=== PATIENT | female | born 2000 | race Two or more races ===

== ENCOUNTER 2025-01-09 20:22 | Observation (INO) | payer MEDICAID, SELFPAY ==
[2025-01-09 20:29] VITALS: BP 119/77; PULSE 77; RESP 18; RESP 99; TEMP 36.6
[2025-01-09 20:31] VITALS: BMI 31.8
[2025-01-09 20:33] VITALS: TEMP 36.6
== END 2025-01-09 20:56 | disposition home or self-care (01) ==
PROVIDERS: Admitting Provider Obstetrics & Gynecology; Visit Provider Obstetrics & Gynecology
DX: O26.893 Other specified pregnancy related conditions, third trimester (principal); R10.2 Pelvic and perineal pain; Z3A.35 35 weeks gestation of pregnancy
CPT/HCPCS: 59899; G0378

== ENCOUNTER 2025-02-04 19:28 | Inpatient (IN) | payer MEDICAID, SELFPAY ==
[2025-02-04] VITALS (18 sets, daily range): BP systolic 108–124; BP diastolic 60–89; PULSE 62–104; RESP 15–99; TEMP 36.8; O2SAT 98–100; BMI 73.5
--- NOTE | 2025-02-04 20:38 | ESHP_ITS ---
Documentation for date of: 02/04/25 OB Labor/Induct. HPI History of Present Illness Chief complaint: 24 y/o 39w 1d presents in early labor to L&D at 2 cm : 3 Para: 2 Term pregnancies: 2 pregnancies: 0 Living children: 2 History of Abortions: Spontaneous and Elective: 0 History of Vaginal deliveries: 2 History of sections: No History of : No MOJGAN: 02/10/25 Gestational Age (weeks): 39 Gestational Age (days): 1 History of present illness: 24 y/o 39w 1d presents in early labor to L&D at 2 cm/60/-3 vertex, GBS is neg. Pt's has been mostly uncomplicated with the exception that the fetus does have multiple VSD. Will notify Peds for a exam. EFW 3400g. Pt has a hx of nvd x2 no complications. History of Present Dating criteria: based on 1st trimester US only Adequate Care: Yes Ultrasounds: normal 1st trimester US, normal mid trimester US and abnormal US findings (Fetus has multiple VSD noted) Obstetrical complications: none Medical complications: none Labs Maternal Blood Type: A Pos Labs: Negative: RPR, Hepatitis B, Rubella Titre, HIV, Chlamydia, Gonorrhea and Group Beta Strep and Unknown: Herpes Type 1, Herpes Type 2 and Covid-19 Review of Systems Review of Systems Systems Reviewed: All systems reviewed, normal except as documented Past Medical History Surgical History SURGICAL: Negative Section Meds Home Medications and Allergies Home Medications ?Medication ?Instructions ?Recorded ?Confirmed ?Type folic acid 20 mg capsule 20 mg PO QDAY 01/09/2502/04 History vit no.95-ferrous 1 tab PO QDAY 01/09/25 05/0 02/24 History fumarate 28 mg-folic acid 800 mcg tablet () Allergies Allergy/AdvReac Type Severity Reaction Status Date / Time No Known Allergies Allergy Verified 02/04/25 19:54 OB Exam Physical Exam Vital signs: Temp Pulse Resp BP Pulse Ox O2 Del Method 98.3 F 94 15 122/75 100 Room Air 02/04/25 19:40 02/04/25 19:40 02/04/25 19:40 02/04/25 19:40 02/04/25 20:35 02/04/25 19:40 Constitutional Constitutional: mild distress (Secondary to painful contractions) Routine HEENT Exam Head: Present normocephalic and atraumatic Eye: Present EOMI, PERRL and normal accommodation ENT: Present mucous membranes moist Routine Neck Exam Neck: Present full ROM Routine Respiratory Exam Respiratory: Absent respiratory distress Routine Cardiovascular Exam Cardiovascular: Present RRR Routine Abdominal Exam Abdominal: Present soft and normoactive bowel sounds Routine Exam External: Present normal urethra appearance; Absent lesions Detailed Labor and Delivery Exam Dilation (cm): 2 Effacement (%): 50 to 60 Cervix position: posterior station: -3 Consistency: soft Presentation: Vertex Membranes: intact Baseline heart rate: 125 monitor accelerations: 15x15 monitor decelerations: None [facility] variability: Moderate (11-25) Contraction frequency (min): 5 minutes Routine Extremities Exam Extremities: Present full ROM Routine Back/Spine/Pelvis Exam Back/Spine: Present full ROM Routine Skin Exam Skin: Present intact, dry and warm Routine Neurological Exam Neurological: Present alert, oriented X3 and CN II-XII intact Routine Psychiatric Exam Psychiatric: Present normal affect and normal thought process OB Assessment & Plan Assessment and Plan (1) Normal labor: Status: Acute (2) with 39 completed weeks gestation: Status: Acute (3) Rubella non-immune status, antepartum: Status: Acute Additional Plan Induction method: none Plan: augmentation (Misoprostol), anticipate NVD and consult prn Additional Plan Comment: Routine admit orders Consult anesthesia or an epidural US for presentation and EFW Continuous EFM Will notify Peds of the [facility] VSDs Dr. Krish perez
--- NOTE | 2025-02-04 21:01 | XR_ITS ---
Examination: file delimited TECHNIQUE: Limited transabdominal sonographic images pelvis Presented time: February 04, 2025 2135 hours INDICATIONS: Unknown size and dates today FINDINGS: Viable intrauterine gestation cephalic presentation spine maternal right Cardiac motion 133 BPM Estimated gestational age 38 weeks 6 days Estimated weight 3605 g IMPRESSION: Viable intrauterine gestation cephalic presentation
[2025-02-04 21:26] LABS: Basophils # (Auto) 0.1 Thou/mm3 (0.0-0.2); Basophils % (Auto) 0 % (0-2.5); Eosinophils # (Auto) 0.1 Thou/mm3 (0.0-0.5); Eosinophils % (Auto) 1 % (0-10); Hematocrit 34.5 % (36.0-46.0); Hemoglobin 11.7 g/dL (12.0-16.0); Immature Granulocytes % (Auto) 0 % (0-0); Immature Granulocytes Auto 0.05 Thou/mm3 (0.00-0.00); Lymphocytes # (Auto) 3.6 Thou/mm3 (1.0-4.8); Lymphocytes % (Auto) 24 % (10-50); Mean Corpuscular HGB Conc 33.9 g/dl (31.0-37.0); Mean Corpuscular Hemoglobin 28.5 pg (25.0-35.0); Mean Corpuscular Volume 84 fL (80-100); Monocytes % (Auto) 6 % (0-12); Neutrophils # (Auto) 10.2 Thou/mm3 (1.8-7.7); Neutrophils % (Auto) 68 % (37-80); Nucleated Red Blood Cell % 0 /100 WBC (0); Platelet Count 222 Thou/mm3 (140-440); Red Blood Count 4.11 Miln/mm3 (4.00-5.20)
[2025-02-04 22:03] LABS: Syphilis Nonreactive (Nonreactive)
[2025-02-04] MEDS: MISOPROSTOL 50 mCg TABLET PO (23:07)
[2025-02-05] VITALS (13 sets, daily range): BP systolic 96–154; BP diastolic 56–105; PULSE 56–89; RESP 16–18; TEMP 36.6–36.9; O2SAT 98–99
[2025-02-05] MEDS: ONDANSETRON INJ 2 MG/ML INJ 2 ML 4 MG IV (02:33)
[2025-02-05] MEDS: fentaNYL CIT INJ 50 mCg/ML AMP 2ML 100 MCG IV (02:33)
[2025-02-05] MEDS: MINERAL OIL 30 ML UDC TOP (04:04)
[2025-02-05] MEDS: OXYTOCIN in NS 20 units 20 UNIT/1,000 ML BAG 125 UNIT IV (04:05)
[2025-02-05] MEDS: LIDOCAINE HCL 1% 20 ML VIAL INFL (04:05)
--- NOTE | 2025-02-05 04:18 | OBDSUM_ITS ---
Data (Meza) Data Hx Section: No Maternal Blood Type: A Pos Rubella Titre: Negative RPR: Non-reactive Labs: Negative: RPR, Hepatitis B, HIV, Chlamydia, Gonorrhea and Group Beta Strep and Unknown: Herpes Type 1 and Herpes Type 2 : 3 Para: 2 Term: 2 : 0 Livin Abortions: Spontaneous & Theraputic: 0 Delivery Data (Meza) Labor Data Initiation of labor: Induction Induction/Augmentation Agent: Cytotec-PO ROM date: 02/05/25 ROM time: 03:46 Amniotic membrane rupture type: Artificial Amniotic fluid description: Clear Delivery Data EDC: 02/10/25 EDC calculated by:: ultrasound Onset of labor date: 02/05/25 Onset of labor time: 02:16 Complete dilation date: 02/05/25 Complete dilation time: 03:46 delivery date: 02/05/25 delivery time: 03:56 Gestational age (weeks): 39 Gestational age (days): 2 Placenta delivery date: 02/05/25 Placenta delivery time: 04:00 Stage 1 total time: Labor - Stage 1 Duration 1 hours and 30 minutes Delivered by: Amanda Mendez Delivery nurse: Sabra Burton nurse: Christo Gonzalez [employer]visor [employer] at delivery: Yes Support person(s) at delivery: Gautam Bagley Other staff at delivery: Shanice ALLISON Delivery Method Delivery: Vaginal Delivery Type: Primary Presentation: Vertex Position: OA Anesthesia Type Primary Anesthesia: Local Secondary Anesthesia: None Delivery Room Medications Other Intrapartum Medications: No Post Delivery Medications: Antibiotics Post Delivery Medications N/A: Yes Placenta Placenta Delivery: Spontaneous Placenta Cultures Obtained: No Placenta Sent for Examination: No Cord Sample: Cord Blood Obtained Episiotomy Episiotomy: None Lacerations #1: Perineal: 1st degree Perineal repair Sutures used for repair: 3.0 Vicryl (CT) EBL Estimated blood loss (ml): 300 Umbilical Cord Umbilical Vessels: 3 Nuchal Cord: Not Applicable Body Cord: Not Applicable Additional Procedures Patient was complete early this morning the bulging bag. AROM performed at bedside clear fluids noted. After a few pushes patient had an of a viable male infant. Infant's anterior shoulder delivered with gentle downward traction subsequent deliver the posterior shoulder and the body without complications. Infant placed on mother's abdomen. Vigorous cry upon delivery. Cord was clamped. Cut by FOB. Cord blood obtained. Three-vessel cord noted. Placenta expelled spontaneously and intact. Patient sustained a first-degree perineal laceration. Repaired using a 3-[address] suture. Excellent hemostasis achieved after vigorous fundal massage and removal of clots from the posterior fornix. EBL 300. Sponge and needle count correct. Mother and baby stable, skin to skin and bonding in LDR. Data (Meza) [place] Data 's gender: Male Identification band number: [id number] weight (gms): 3425 g Weight (pounds): 7 lbs and 8.8 ozs length: 53.34 cm 1 minute: 9 5 minutes: 9
[2025-02-05] MEDS: TRANEXAMIC ACID 1,000 MG IVPB 1,000 MG/100 ML BAG 200 MG IV (05:31)
[2025-02-05] MEDS: ceFAZolin/D5W 2 GM IV 2 GM/100 ML BAG IV (05:33)
[2025-02-05] MEDS: BENZO/LANO/ALOE (Dermoplast) 60 GM CAN 1 SPRAY TOP (05:33)
[2025-02-05] MEDS: IBUPROFEN TAB 400 MG TABLET 800 MG PO ×2 (06:24→15:19)
[2025-02-05] MEDS: DOCUSATE SOD 100 MG CAPSULE PO (08:36)
[2025-02-05 10:05] LABS: Basophils % (Auto) 0 % (0-2.5); Eosinophils % (Auto) 0 % (0-10); Hematocrit 32.6 % (36.0-46.0); Hemoglobin 10.9 g/dL (12.0-16.0); Immature Granulocytes % (Auto) 0 % (0-0); Immature Granulocytes Auto 0.08 Thou/mm3 (0.00-0.00); Lymphocytes # (Auto) 1.7 Thou/mm3 (1.0-4.8); Lymphocytes % (Auto) 9 % (10-50); Mean Corpuscular HGB Conc 33.4 g/dl (31.0-37.0); Mean Corpuscular Hemoglobin 28.9 pg (25.0-35.0); Mean Corpuscular Volume 87 fL (80-100); Monocytes # (Auto) 1.2 Thou/mm3 (0.0-0.8); Monocytes % (Auto) 6 % (0-12); Neutrophils # (Auto) 15.8 Thou/mm3 (1.8-7.7); Neutrophils % (Auto) 84 % (37-80); Nucleated Red Blood Cell % 0 /100 WBC (0); Platelet Count 200 Thou/mm3 (140-440); RDW Standard Deviation 45.6 fL (36.4-46.3); Red Blood Count 3.77 Miln/mm3 (4.00-5.20); White Blood Count 18.8 Thou/mm3 (3.6-11.0)
[2025-02-05 20:27] LABS: Basophils % (Auto) 0 % (0-2.5); Eosinophils # (Auto) 0.1 Thou/mm3 (0.0-0.5); Eosinophils % (Auto) 0 % (0-10); Hematocrit 31.3 % (36.0-46.0); Hemoglobin 10.5 g/dL (12.0-16.0); Immature Granulocytes % (Auto) 1 % (0-0); Lymphocytes # (Auto) 2.6 Thou/mm3 (1.0-4.8); Lymphocytes % (Auto) 15 % (10-50); Mean Corpuscular HGB Conc 33.5 g/dl (31.0-37.0); Mean Corpuscular Hemoglobin 28.9 pg (25.0-35.0); Mean Corpuscular Volume 86 fL (80-100); Monocytes # (Auto) 1.2 Thou/mm3 (0.0-0.8); Monocytes % (Auto) 7 % (0-12); Neutrophils # (Auto) 13.2 Thou/mm3 (1.8-7.7); Neutrophils % (Auto) 77 % (37-80); Nucleated Red Blood Cell % 0 /100 WBC (0); Platelet Count 180 Thou/mm3 (140-440); Red Blood Count 3.63 Miln/mm3 (4.00-5.20); White Blood Count 17.1 Thou/mm3 (3.6-11.0)
[2025-02-06 03:00] VITALS: BP 104/71; PULSE 98; RESP 18; TEMP 36.6; O2SAT 96
--- NOTE | 2025-02-06 06:33 | PD.LDDS ---
DS: Providers Provider Date of admission: 02/04/25 20:33 Primary care physician: Physician No Primary/Family Admitting Provider: Amanda Mendez CNM Attending Provider on Admission: Amanda Mendez CNM Attending Provider on DC: Amanda Mendez CNM Discharging Provider: Amanda Mendez CNM Anticipated date of discharge: 02/06/25 DS: Diagnosis Discharge Diagnosis (1) Normal spontaneous vaginal delivery: Status: Acute (2) Encounter for care of lactating mother: Status: Acute (3) Rubella nonimmune status, delivered, current hospitalization: Status: Acute (4) with 39 completed weeks gestation: Status: Acute (5) Normal labor: Status: Acute Problem List Completed Was Problem List Reviewed/Reconciled?: Yes Summary/Hosp Course Brief History: 24 y/o 39w 1d presents in early labor to L&D at 2 cm/60/-3 vertex, GBS is neg. Pt's has been mostly uncomplicated with the exception that the fetus does have multiple VSD. Will notify Peds for a exam. EFW 3400g. Pt has a hx of nvd x2 no complications. 02/05/25: Patient was complete early this morning the bulging bag. AROM performed at bedside clear fluids noted. After a few pushes patient had an of a viable male infant. 's anterior shoulder delivered with gentle downward traction subsequent deliver the posterior shoulder and the body without complications. placed on mother's abdomen. Vigorous cry upon delivery. Cord was clamped. Cut by FOB. Cord blood obtained. Three-vessel cord noted. Placenta expelled spontaneously and intact. Patient sustained a first-degree perineal laceration. Repaired using a 3-[address] suture. Excellent hemostasis achieved after vigorous fundal massage and removal of clots from the posterior fornix. EBL 300. Sponge and needle count correct. Mother and baby stable, skin to skin and bonding in LDR. 02/06/25: PPD#1 Patient is stable and afebrile doing well . Denies dizziness shortness of breath. No complaints. Discharge instructions given. Uterus nontender fundus firm minimal lochia. Patient to follow-up with Leslee Mendez CNM in 3 weeks Peripartum Data Delivery Method: Normal Vaginal Delivery Episiotomy Description: None Laceration Description: yes and see Delivery Summary complications: none 1: Gender: Male Disposition of : home Status at Discharge Cognitive/behavioral status at discharge: Alert and oriented x 3 Functional status at discharge: independent ambulation Overall status at discharge: patient is progressing back to baseline Time Spent with Patient Time attestation: Total time spent providing and/or coordinating discharge services: Time spent: Greater than 30 minutes Exam Vital Signs Temp Pulse Resp BP Pulse Ox O2 Del Method 98.2 F 68 15 129/76 100 Room Air 02/04/25 23:10 02/05/25 04:19 02/04/25 19:40 02/05/25 04:19 02/04/25 20:40 02/04/25 19:40 Constitutional Constitutional: no acute distress Routine HEENT Exam Head: Present normocephalic and atraumatic Eye: Present EOMI, PERRL and normal accommodation ENT: Present mucous membranes moist Routine Neck Exam Neck: Present full ROM Routine Respiratory Exam Respiratory: Present chest non-tender, lungs clear, normal breath sounds and no resp distress Routine Cardiovascular Exam Cardiovascular: Present RRR Routine Abdominal Exam Abdominal: Present soft and normoactive bowel sounds; Absent tenderness or distended Comments: Uterus nontender Fundus firm Routine Exam Patient deferred: external exam Routine Extremities Exam Extremities: Present full ROM, pulses intact and normal capillary refill; Absent calf tenderness or tenderness Routine Back/Spine/Pelvis Exam Back/Spine: Present full ROM Routine Skin Exam Skin: Present intact, dry and warm Routine Neurological Exam Neurological: Present alert, oriented X3 and CN II-XII intact Routine Psychiatric Exam Psychiatric: Present normal affect and normal thought process Discharge Plan Plan Patient Disposition: HOME (Self Care) Patient condition on transfer: Stable Prescriptions/Referrals Prescriptions/Med Rec: New ibuprofen 800 mg tablet 800 mg PO Q6H MDD 4 PRN (Reason: pain) Qty: 90 0RF docusate sodium [Colace] 100 mg capsule 100 mg PO BID Qty: 60 0RF lanolin 50 % ointment 1 applic topical TID PRN (Reason: skin irritation) Qty: 15 0RF Continued PNV cmb#95-ferrous fumarate-FA [] 28 mg iron- 800 mcg tablet 1 tab PO QDAY folic acid 20 mg capsule 20 mg PO QDAY Referrals: No Primary/Family,Physician [Primary Care Provider] - Patient/Caregiver Discharge Instructions Meds to Beds: No Discharge Activity: activity as tolerated Other Discharge Activity Instructions:: Follow-up with Amanda Mendez CNM in 3 weeks Education Materials: After a Vaginal , After Delivery Concerns, : Caring for Yourself Print Language: Grenadian Stand Alone Forms: [employer]mi Award Info., Patient Portal Info Letter, Work/Release Restrictions Vaccines Vaccines Given During Stay: MMR Discharge Order Discharge Orders: Discharge (Routine); Ordered 02/06/25 Ordered By: Amanda Mendez Planned Discharge Date 02/06/25
[2025-02-06] MEDS: IBUPROFEN TAB 400 MG TABLET 800 MG PO (07:13)
[2025-02-06 07:15] VITALS: BP 112/71; PULSE 68; RESP 16; TEMP 36.4; O2SAT 98
[2025-02-06] MEDS: DOCUSATE SOD 100 MG CAPSULE PO (09:14)
== END 2025-02-06 11:40 | disposition home or self-care (01) | DRG 560 ==
LOC: S4SX 02-05 06:19 → S4NX 02-05 09:07 → S4SX 02-12 06:47 → S4NX 02-12 06:47 → S4SX 02-12 06:47
PROVIDERS: Admitting Provider Nurse Practitioner Women's Health; Visit Provider Student in an Organized Health Care Education/Training Program
DX: O70.0 First degree perineal laceration during delivery (principal); Z37.0 Single live birth; Z3A.39 39 weeks gestation of pregnancy
CPT/HCPCS: 36415; 59025; 59409; 76815; 85025; 86780; 86850; 86900; 86901; 94762; J0689; J2405; J2590; J3010; J3490; A9270